=== PATIENT | male | born 1965 | race Caucasian/White ===

== ENCOUNTER → 2019-09-28 | Outpatient (REF) | payer OTHER ==
[2019-09-28 13:09] LABS: HEMOGLOBIN A1c 6.1 %
== END ==
LOC: M SFHCCLAY 07:15
PROVIDERS: ATTEND Family Medicine
DX: R73.01 Impaired fasting glucose (principal)

== ENCOUNTER → 2019-10-17 | Outpatient (CLI) | payer OTHER ==
[~2019-10-17] MED LIST: E-Z-GAS II EFFERVESCENT PACKET (SODIUM BICARB./CITRIC ACID/SIMETHICONE) As Ordered ONE; E-Z-HD 98% w/w 340GM SUSP BTL As Ordered ONE; E-Z-PAQUE 96% w/w SUSP 176GM BTL As Ordered ONE; IBUPOTC PO; MULTCAP PO
--- NOTE | 2019-10-17 20:02 | REP ---
Esophagram The procedure was performed under the direct supervision of Dr. Kellogg. The images were reviewed with Dr. Kellogg. A single view PA chest x-ray is submitted as a basketball scout film. The superior mediastinal structures are midline. The heart size is within normal limits. The lungs are clear. There is a calcified granuloma in the right mid lung zone. Liquid barium and gas producing granules were given in the erect position as well as liquid barium in the prone oblique positions in order to perform a double contrast esophagram examination. The oral and pharyngeal stages of deglutition are unremarkable. Esophageal transport is prompt and efficient and there is no esophagitis, stricture, mucosal ring or hiatal hernia. Gastroesophageal reflux is not demonstrated on this examination. Impression: Note is made of a calcified granuloma in the right mid lung zone. Otherwise unremarkable double contrast esophagram examination. 0.8 minutes of fluoro time was utilized for this procedure. Electronically Signed by GAURI Jack 10/17/2019 04:37 P Electronically Signed by Guillermo Kellogg MD 10/17/2019 07:53 P
== END ==
LOC: M RAD 10:00
PROVIDERS: ATTEND Nurse Practitioner
DX: R13.10 Dysphagia, unspecified (principal)

== ENCOUNTER → 2020-08-10 | Outpatient (CLI) | payer OTHER ==
[~2020-08-10] MED LIST changes: -E-Z-GAS II EFFERVESCENT PACKET (SODIUM BICARB./CITRIC ACID/SIMETHICONE) As Ordered ONE; -E-Z-HD 98% w/w 340GM SUSP BTL As Ordered ONE; -E-Z-PAQUE 96% w/w SUSP 176GM BTL As Ordered ONE
--- NOTE | 2020-08-13 13:21 | SLEEPCENT ---
DATE OF SERVICE: 08/10/2020 ORDERED BY: Aurea Smiley Nocturnal polysomnography was performed for evaluation of sleep physiology in this patient with a history of excessive somnolence, observed apneas, and nonrestorative sleep, who has a comorbidity of acid reflux disease. There was 8 hours and 32 minutes of data reviewed. There was 374.5 minutes of sleep identified. Sleep latency was prolonged at 32 minutes. REM sleep occurred timely at 86.5 minutes. Sleep architecture was fair. There was significant fragmentation seen in a period of wake around 2 a.m. Overall, three REM cycles were encountered, The sleep efficiency was 74.6%. The electrocardiogram showed a sinus rhythm with an average heart rate of 62 beats per minute. Rate ranged 54-90. EEG showed reasonably normal waveforms for wake and sleep. There were 203 respiratory events identified of 10 seconds in duration or greater for an apnea-hypopnea index of 32.5. The events were obstructive, not related to sleep stage nor body posture. Arousals from respiratory events occurred 16.2 times per hour, and oxygen desaturations were seen below 90%. There was some activity in the limb leads, but limb movement arousals were few. IMPRESSION: Obstructive sleep apnea syndrome (G47.33). Apnea-hypopnea index 32.5. RECOMMENDATION: The patient should be encouraged to return to the sleep disorder center for pressure therapy. In the interim, alcohol and sedative avoidance should be practiced and caution exercised during the operation of motor vehicles.
== END ==
LOC: M SLEEP 20:00
PROVIDERS: ATTEND Nurse Practitioner Family
DX: G47.33 Obstructive sleep apnea (adult) (pediatric) (principal); R40.0 Somnolence

== ENCOUNTER → 2020-08-22 | Outpatient (CLI) | payer OTHER ==
--- NOTE | 2020-08-26 11:45 | SLEEPCENT ---
NOCTURNAL POLYSOMNOGRAPHY CPAP TITRATION DATE: 08/22/2020 ORDERED BY: CHAGO Bond Nocturnal polysomnography was performed for the titration of pressure therapy in this patient with obstructive sleep apnea syndrome with apnea-hypopnea index of 32.5. For testing a ResMed Quattro full face mask of medium size was used, 4 cm of water pressure were applied to the circuit, and the lights were extinguished. Eight hours and 1 minute of data were reviewed. There were 349 minutes of sleep identified. Sleep latency was prolonged at 31.5 minutes. REM latency was mildly prolonged at 116 minutes. Sleep architecture was fairly good with three REM cycles. There was a period of wake around 1 a.m., resulting in a reduced sleep efficiency of 73.6%. The electrocardiogram showed a sinus rhythm with an average heart rate of 68 beats per minute. EEG showed normal waveforms for wake and sleep. Respiratory events were best palliated with CPAP at a pressure of 16 with some limb activity noted particularly early in the study and movement arousal index on this occasion was 3.6. IMPRESSION: Obstructive sleep apnea syndrome (G47.33). RECOMMENDATION: Nightly use of pressure therapy 16 cm of water.
== END ==
LOC: M SLEEP 20:00
PROVIDERS: ATTEND Nurse Practitioner Family
DX: G47.33 Obstructive sleep apnea (adult) (pediatric) (principal)

== ENCOUNTER → 2020-09-25 | Outpatient (REF) | payer OTHER ==
[2020-09-25 12:08] LABS: HEMOGLOBIN A1c 5.5 %
[2020-09-25 12:18] LABS: BLOOD UREA NITROGEN 23 MG/DL (7-18); CALCIUM LEVEL 9.1 MG/DL (8.5-10.1); CARBON DIOXIDE LEVEL 30 MEQ/L (21-32); CHLORIDE LEVEL 105 MEQ/L (98-107); CHOLESTEROL LEVEL 238 MG/DL (<200); CHOLESTEROL RISK RATIO 6.611 (<5); CREATININE FOR GFR 1.03 MG/DL (0.70-1.30); GLOMERULAR FILTRATION RATE > 60.0 (>56); GLUCOSE, FASTING 113 MG/DL (70-100); HDL CHOLESTEROL 36 MG/DL (>40); LDL CHOLESTEROL 131 MG/DL (<100); NON-HDL-C 202 MG/DL; POTASSIUM SERUM 4.1 MEQ/L (3.5-5.1); SODIUM LEVEL 138 MEQ/L (136-145); TRIGLYCERIDES LEVEL 355 MG/DL (<150)
== END ==
LOC: M SFHCCLAY 07:23
PROVIDERS: ATTEND Family Medicine
DX: Z00.00 Encounter for general adult medical examination without abnormal findings (principal); R73.03 Prediabetes; E78.5 Hyperlipidemia, unspecified

== ENCOUNTER → 2020-10-16 | Outpatient (CLI) | payer OTHER ==
--- NOTE | 2020-10-18 12:36 | ECHO ---
DATE OF PROCEDURE: 10/16/2020 Age: 55 Gender: Male Height: 74 inches Weight: 300 pounds Body Surface Area: 2.57 m2 PATIENT LOCATION: Outpatient. REFERRING PHYSICIAN: Loulou Rob DO. INDICATION: Edema. MEASUREMENTS: 2D Measurements: RV 4.6 cm. LV 6.0 cm Septum 1.3 cm Posterior wall 1.3 cm Aortic Root 4.0 cm LA 4.7 cm LVEF 55% Doppler Measurements: AV 1.38 m/s LVOT 0.8 m/s MV-E 55, A 43, EA ratio 1.3 Early mitral deceleration time 209 msec E prime medial 9.4, A prime medial 8.7, E prime lateral 11.9 PV - 0.8 m/s Pulmonary artery acceleration time 132 msec PASP 24 mmHg COMMENTS: Sinus bradycardia without intraventricular conduction disturbance. Technically challenging study in light of the patient's body habitus, but some diagnostically useful information was still obtained. M-mode and 2-dimensional echocardiography was performed with pulse, continuous wave, color flow, and tissue Doppler studies. At least mildly dilated and symmetrically hypertrophied left ventricle with normal wall motion. Moderately dilated left atrium with currently normal Doppler assessment of LV diastolic function and estimated mean left atrial pressure. At least mildly dilated right heart chambers with normal wall motion and estimated pulmonary arterial pressure. We could not visualize his inferior vena cava in light of his body habitus to further define the central venous pressure, but this is unlikely to be elevated. Mildly dilated aortic root and ascending aorta. Normal appearing and functioning aortic valve. Normal appearing and functioning mitral valve with very mild insufficiency. Normal appearing tricuspid valve with no more than trace insufficiency. No apparent intracardiac mass or pericardial effusion. MTDD
== END ==
LOC: M CARPUL 10:08
PROVIDERS: ATTEND Family Medicine
DX: R60.0 Localized edema (principal)

== ENCOUNTER → 2021-01-31 | Outpatient (REF) | payer OTHER ==
[2021-01-31 12:52] LABS: CHOLESTEROL RISK RATIO 4.41 (<5)
== END ==
LOC: M SFHCCLAY 07:13
PROVIDERS: ATTEND Family Medicine
DX: E78.5 Hyperlipidemia, unspecified (principal)

== ENCOUNTER → 2021-06-13 | Outpatient (CLI) | payer OTHER ==
--- NOTE | 2021-06-13 11:55 | REP ---
INDICATION: RIGHT SUPRASPINATUS COMPARISON: None. TECHNIQUE: Internal rotation, external rotation, and Y view. FINDINGS: Very minimal cortical irregularity at the acromioclavicular joint and subtle increased sclerosis to the glenoid rim noted. No evidence for acute or healed fracture/dislocation. Subacromial space is normal. No periarticular calcifications or loose bodies noted. IMPRESSION: Mild age-related degenerative changes. <Electronically signed by Israel White > 06/13/21 [id number]
== END ==
LOC: M CLY 11:29
PROVIDERS: ATTEND Family Medicine
DX: M75.91 Shoulder lesion, unspecified, right shoulder (principal)

== ENCOUNTER → 2022-11-27 | Outpatient (CLI) | payer OTHER | LOC: M CARPUL 13:06 | PROVIDERS: ATTEND Nurse Practitioner Family | DX: I51.7 Cardiomegaly (principal) ==

== ENCOUNTER → 2023-10-25 | Outpatient (REF) | payer OTHER ==
[2023-10-25 12:13] LABS: ALBUMIN 4.4 G/DL (3.2-5.2); ALKALINE PHOSPHATASE 62 U/L (46-116); ALT/SGPT 39 U/L (7.0-40); AST/SGOT 22 U/L (<34); BILIRUBIN,TOTAL 0.5 MG/DL (0.3-1.2); BLOOD UREA NITROGEN 19 MG/DL (9-23); CALCIUM LEVEL 9.4 MG/DL (8.5-10.1); CARBON DIOXIDE LEVEL 30 MMOL/L (20-31); CHLORIDE LEVEL 107 MMOL/L (98-107); CHOLESTEROL LEVEL 183 MG/DL (<200); CHOLESTEROL RISK RATIO 4.72 (<5); CREATININE FOR GFR 0.84 MG/DL (0.70-1.30); GLOMERULAR FILTRATION RATE > 60.0 (>56); GLUCOSE, FASTING 110 MG/DL (60-100); HDL CHOLESTEROL 38.7 MG/DL (>40); LDL CHOLESTEROL 90.9 MG/DL (<100); NON-HDL-C 144.3 MG/DL; POTASSIUM SERUM 4.4 MMOL/L (3.5-5.1); SODIUM LEVEL 142 MMOL/L (136-145); TOTAL PROTEIN 7.7 G/DL (5.7-8.2); TRIGLYCERIDES LEVEL 267 MG/DL (<150)
== END ==
LOC: M SFHCCLAY 08:34
PROVIDERS: ATTEND Nurse Practitioner Family
DX: M19.031 Primary osteoarthritis, right wrist (principal); J30.2 Other seasonal allergic rhinitis; I51.7 Cardiomegaly; K21.9 Gastro-esophageal reflux disease without esophagitis; E78.5 Hyperlipidemia, unspecified; G47.33 Obstructive sleep apnea (adult) (pediatric)

== ENCOUNTER → 2024-10-26 | Outpatient (REF) | payer OTHER ==
[2024-10-26 13:21] LABS: HEMOGLOBIN A1c 6.1 % (4.0-6.0)
[2024-10-26 13:24] LABS: ALBUMIN 4.3 G/DL (3.2-5.2); ALKALINE PHOSPHATASE 66 U/L (40-129); ALT/SGPT 41 U/L (7.0-40); AST/SGOT 23 U/L (<34); BILIRUBIN,TOTAL 0.3 MG/DL (0.3-1.2); BLOOD UREA NITROGEN 23 MG/DL (9-23); CALCIUM LEVEL 9.1 MG/DL (8.3-10.6); CARBON DIOXIDE LEVEL 25 MMOL/L (20-31); CHLORIDE LEVEL 105 MMOL/L (98-107); CHOLESTEROL LEVEL 175 MG/DL (<200); CHOLESTEROL RISK RATIO 3.94 (<5); CREATININE FOR GFR 0.78 MG/DL (0.70-1.30); GLOMERULAR FILTRATION RATE > 60.0 (>49); GLUCOSE, FASTING 100 MG/DL (74-106); HDL CHOLESTEROL 44.4 MG/DL (>40); LDL CHOLESTEROL 69.2 MG/DL (<100); NON-HDL-C 130.6 MG/DL; POTASSIUM SERUM 4.2 MMOL/L (3.5-5.1); SODIUM LEVEL 141 MMOL/L (136-145); TOTAL PROTEIN 7.8 G/DL (5.7-8.2); TRIGLYCERIDES LEVEL 307 MG/DL (<150)
== END ==
LOC: M SFHCCLAY 08:25
PROVIDERS: ATTEND Nurse Practitioner Family
DX: Z00.00 Encounter for general adult medical examination without abnormal findings (principal); M19.031 Primary osteoarthritis, right wrist; J30.2 Other seasonal allergic rhinitis; I51.7 Cardiomegaly; K21.9 Gastro-esophageal reflux disease without esophagitis; E78.5 Hyperlipidemia, unspecified; G47.33 Obstructive sleep apnea (adult) (pediatric)